=== PATIENT | female | born 1965 | race Caucasian/White ===

== ENCOUNTER → 2017-07-07 | Outpatient (CLI) | payer OTHER ==
[~2017-07-07] MED LIST: CALC-126 PO; CHOL100012 PO; VIT1TABL34 PO
[2017-07-07 09:45] LABS: BASOPHILS # (AUTO) 0.03 x10^3/uL (0-0.1); BASOPHILS % (AUTO) 1 % (0-1); EOSINOPHILS # (AUTO) 0.08 x10^3/uL (0-0.4); EOSINOPHILS % (AUTO) 2 % (1-7); LYMPHOCYTES # (AUTO) 1.31 x10^3/uL (1-3.4); LYMPHOCYTES % (AUTO) 33 % (22-44); MD NO; MEAN CORPUSCULAR HEMOGLOBIN 31.8 pg (27.0-34.8); MEAN CORPUSCULAR HGB CONC 33.7 g/dL (32.4-35.8); MEAN CORPUSCULAR VOLUME 94.3 fL (80-100); MEAN PLATELET VOLUME 8.1 fL (7.4-10.4); MONOCYTES # (AUTO) 0.35 x10^3/uL (0.2-0.8); MONOCYTES % (AUTO) 9 % (2-9); NEUTROPHILS # (AUTO) 2.21 x10^3/uL (1.8-6.8); NEUTROPHILS % (AUTO) 56 % (42-75); PLATELET COUNT 239 x10^3/uL (130-400); RED BLOOD COUNT 4.24 x10^6/uL (3.82-5.3); RED CELL DISTRIBUTION WIDTH 12.4 % (9.6-15.2)
[2017-07-07 10:09] LABS: CHLORIDE 108 mmol/L (98-107)
[2017-07-07 10:44] LABS: ANION GAP 7 mmol/L (5-15); CALCIUM 8.6 mg/dL (8.5-10.1); CREATININE 0.61 mg/dL (0.55-1.02)
== END | disposition home or self-care (01) ==
LOC: STAR 08:48
PROVIDERS: ATTEND Obstetrics & Gynecology Female Pelvic Medicine and Reconstructive Surgery
DX: Z01.818 Encounter for other preprocedural examination (principal); R94.31 Abnormal electrocardiogram [ECG] [EKG]; N95.0 Postmenopausal bleeding; N84.1 Polyp of cervix uteri
CPT/HCPCS: 36415; 71046; 80048; 85025; 93005

== ENCOUNTER 2017-07-27 13:27 | Day surgery (SDC) | payer OTHER ==
[~2017-07-27] VITALS: Ht 177.8 cm; Wt 58.5 kg
[~2017-07-27 13:27] MED LIST changes: +DEXAMETHASONE 4 MG/ML, 1ML ONE; +KETOROLAC 30 MG/1 ML ONE; +ONDANSETRON 2MG/ML, 2ML ONE; +PROPOFOL 10 MG/ML, 20ML ONE
[2017-07-27] MEDS ORDERED: LACTATED RINGERS 1,000 ML IV SCH ×2 (13:54→16:36)
[2017-07-27 13:55] VITALS: BP 93/60
[2017-07-27] MEDS ORDERED: LIDOCAINE 1%, 2ML SQ PRN (14:00)
[2017-07-27] MEDS ORDERED: LIDOCAINE-MPF 1%, 2ML ONE (14:14)
[2017-07-27] MEDS ORDERED: ACETAMINOPHEN 500 MG TABLET PO ONE (14:30)
[2017-07-27] MEDS ORDERED: SCOPOLAMINE PATCH, 1.5MG PATCH.TD72 TD ONE (14:30)
[2017-07-27 14:45] LABS: HCG UR SG 1.023 (1.003-1.030)
[2017-07-27] MEDS ORDERED: FENTANYL PF 100 MCG/2ML ONE (14:45)
[2017-07-27] MEDS ORDERED: MIDAZOLAM 1 MG/ML, 2ML ONE (14:45)
[2017-07-27] MEDS ORDERED: SILVER NITRATE STICK TP ONE (16:04)
[2017-07-27] MEDS ORDERED: BUPIVACAINE/PF 0.25% ONE (16:04)
[2017-07-27] MEDS ORDERED: EPINEPHRINE 1 MG/ML, 1ML ONE (16:04)
[2017-07-27] MEDS ORDERED: BUPIVACAINE/PF-EPI 0.25% 1:200K INFIL ONE (16:50)
[2017-07-27] MEDS ORDERED: HYDROcodone/APAP 5/325 TABLET PO PRN (17:00)
[2017-07-27] MEDS ORDERED: ONDANSETRON 2MG/ML, 2ML IVPush PRN (17:00)
[2017-07-27] MEDS ORDERED: PROMETHAZINE 25 MG SUPP PR ONE (17:00)
[2017-07-27] MEDS ORDERED: IBUPROFEN 600 MG TABLET PO PRN (17:00)
== END 2017-07-27 18:15 | disposition home or self-care (01) ==
LOC: OR 13:27
PROVIDERS: ATTEND Obstetrics & Gynecology Female Pelvic Medicine and Reconstructive Surgery
DX: N95.0 Postmenopausal bleeding (principal); E66.9 Obesity, unspecified
CPT/HCPCS: 58558; 81025; 88305; J0171; J1100; J1885; J2250; J2405; J2704; J3010; J3490; J7120